=== PATIENT | female | born 2000 | race American Indian/Alaskan Native ===

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

== ENCOUNTER 2022-03-03 21:50 | Emergency (ER) | payer OTHER ==
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
[2022-03-04] MEDS ORDERED: IBUPROFEN 800 MG TAB PO ONE (02:21)
[2022-03-04] MEDS ORDERED: HYDROcodone/ACETAMINOPHEN 5-325 MG TAB PO ONE (02:21)
== END 2022-03-04 02:37 | disposition home or self-care (01) ==
LOC: ED 21:50
DX: M54.9 Dorsalgia, unspecified (principal); Z91.010 Allergy to peanuts
CPT/HCPCS: 99282